=== PATIENT | male | born 1970 | race Caucasian/White ===

== ENCOUNTER 2016-12-02 21:34 | Emergency (ER) | payer OTHER ==
--- NOTE | 2016-12-02 22:12 | EDM.PDOC ---
ED HPI GENERAL MEDICAL PROBLEM - General Chief Complaint: General Stated Complaint: MEDICAL CLEARANCE Time Seen by Provider: 12/02/16 21:50 Source of Information: Reports: Patient, Police - History of Present Illness INITIAL COMMENTS - FREE TEXT/NARRATIVE: He is brought here by police. Police were called because a co worker called saying that he had a gun and was about to shoot himself. The gun was wrestled away. When police were called he was quite agitated. no pain Pain Score (Numeric/FACES): 0 - Related Data Allergies Allergy/AdvReac Type Severity Reaction Status Date / Time cimetidine [From Tagamet] Allergy Headache Verified 12/02/16 21:40 Home Meds: Home Meds Cyclobenzaprine HCl 5 mg PO TID PRN #45 tablet 08/16/16 [Rx] Gabapentin [Neurontin] 300 mg PO BID #30 capsule 08/16/16 [Rx] Sertraline HCl [Zoloft] 150 mg PO DAILY 08/16/16 [History] Vit D3/Vit E Ac/Safflower Oil [Vitamin E Oil-Vitamin D] 1 mg PO DAILY 08/16/16 [ History] methylPREDNISolone [Medrol] 4 mg PO ASDIRECTED #21 tab.ds.pk 08/16/16 [Rx] Past Medical History Cardiovascular History: Reports: None Respiratory History: Reports: None Gastrointestinal History: Reports: None Genitourinary History: Reports: None Neurological History: Reports: None Psychiatric History: Reports: None Endocrine/Metabolic History: Reports: None Hematologic History: Reports: B12 Deficiency 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 Immunologic History: Reports: None Oncologic (Cancer) History: Reports: None Dermatologic History: Reports: None - Infectious Disease History Infectious Disease History: Reports: Chicken Pox - Past Surgical History Head Surgeries/Procedures: Reports: None HEENT Surgical History: Reports: Adenoidectomy, Naso-Sinus Surgery, Oral Surgery , Tonsillectomy GI Surgical History: Reports: Other (See Below) Male Surgical History: Reports: None Musculoskeletal Surgical History: Reports: Arthroscopic Knee, Shoulder Surgery Social & Family History - Family History Family Medical History: Noncontributory - Tobacco Use Smoking Status *Q: Never Smoker Second Hand Smoke Exposure: No - Caffeine Use Caffeine Use: Reports: Coffee, Soda - Recreational Drug Use Recreational Drug Use: No ED ROS GENERAL - Review of Systems Review Of Systems: See Below Constitutional: Denies: Fever, Chills Respiratory: Denies: Shortness of Breath, Cough, Sputum ED EXAM, GENERAL - Physical Exam Exam: See Below General Appearance: Alert, No Apparent Distress, Other (he has push of speech. He seems slightly agitated and becomes very defensive and agitated when asked specific questions about his possible suicide attempt. He denies any suicidal ideation. He states that he will not cooperate with hospitalization or lab testing. ) Nose: Normal Inspection Throat/Mouth: Normal Lips Head: Atraumatic Neck: Supple. No: Thyromegaly Respiratory/Chest: No Respiratory Distress, Lungs Clear Cardiovascular: Regular Rate, Rhythm, No JVD, No Murmur GI/Abdominal: Soft, Non-Tender Course - Vital Signs Last Recorded V/S: Last Vital Signs Temp 98.7 F 12/02/16 21:41 Pulse 90 12/02/16 21:41 Resp 18 12/02/16 21:41 BP 168/100 H 12/02/16 21:41 Pulse Ox 95 12/02/16 21:41 - Orders/Labs/Meds Orders: Active Orders 24 hr Category Date Time Status EKG Documentation Completion [RC] STAT Care 12/02/16 22:28 Active Chest 1V Frontal [CR] Stat Exams 12/02/16 22:18 Ordered ACETAMINOPHEN [CHEM] Stat Lab 12/02/16 22:32 Received COMPREHENSIVE METABOLIC PN,CMP [CHEM] Stat Lab 12/02/16 22:32 Received ETHANOL BLOOD MEDICAL [CHEM] Stat Lab 12/02/16 22:32 Received T4 FREE [CHEM] Stat Lab 12/02/16 22:32 Received TSH [CHEM] Stat Lab 12/02/16 22:32 Received Labs: Laboratory Tests 12/02/16 12/02/16 12/02/16 Range/Units 22:32 22:37 22:37 WBC 7.04 (4.0-11.0) K/uL RBC 4.85 (4.50-5.90) M/uL Hgb 15.3 (13.0-17.0) g/dL Hct 43.3 (38.0-50.0) % MCV 89.3 (80.0-98.0) fL MCH 31.5 (27.0-32.0) pg MCHC 35.3 (31.0-37.0) g/dL RDW Std Deviation 45.4 (28.0-62.0) fl RDW Coeff of Ines 14 (11.0-15.0) % Plt Count 183 (150-400) K/uL MPV 10.00 (7.40-12.00) fL Neut % (Auto) 70.5 (48.0-80.0) % Lymph % (Auto) 17.0 (16.0-40.0) % Loving % (Auto) 9.5 (0.0-15.0) % Eos % (Auto) 2.7 (0.0-7.0) % Baso % (Auto) 0.3 (0.0-1.5) % Neut # (Auto) 5.0 (1.4-5.7) K/uL Lymph # (Auto) 1.2 (0.6-2.4) K/uL Loving # (Auto) 0.7 (0.0-0.8) K/uL Eos # (Auto) 0.2 (0.0-0.7) K/uL Baso # (Auto) 0.0 (0.0-0.1) K/uL Nucleated RBC % 0.0 /100WBC Nucleated RBCs # 0 K/uL Urine Color YELLOW Urine Appearance CLEAR Urine pH 7.0 (5.0-8.0) Ur Specific Sargent <= 1.005 (1.001-1.035) Urine Protein NEGATIVE (NEGATIVE) mg/dL Urine Glucose (UA) NEGATIVE (NEGATIVE) mg/dL Urine Ketones NEGATIVE (NEGATIVE) mg/dL Urine Occult Blood TRACE-INTACT (NEGATIVE) Urine Nitrite NEGATIVE (NEGATIVE) Urine Bilirubin NEGATIVE (NEGATIVE) Urine Urobilinogen 0.2 (<2.0) EU/dL Ur Leukocyte Esterase NEGATIVE (NEGATIVE) Urine RBC 0-2 (0-2/HPF) Urine WBC NONE SEEN (0-5/HPF) Ur Epithelial Cells RARE (NONE-FEW) Urine Bacteria RARE (NEGATIVE) Urine Opiates Screen NEGATIVE (NEGATIVE) Ur Oxycodone Screen NEGATIVE (NEGATIVE) Urine Methadone Screen NEGATIVE (NEGATIVE) Ur Barbiturates Screen NEGATIVE (NEGATIVE) Ur Phencyclidine Scrn NEGATIVE (NEGATIVE) Ur Amphetamine Screen NEGATIVE (NEGATIVE) U Methamphetamines Scrn NEGATIVE (NEGATIVE) U Benzodiazepines Scrn NEGATIVE (NEGATIVE) U Cocaine Metab Screen NEGATIVE (NEGATIVE) U Marijuana (THC) Screen NEGATIVE (NEGATIVE) - Re-Assessments/Exams Free Text/Narrative Re-Assessment/Exam: 12/02/16 22:[address] Rodriguez psychiatrist [facility] who agreed to accept through the emergency dept. I also spoke with Dr Mueller, ER physician [facility] who agrees to accept. Departure - Departure Time of Disposition: 22:55 Disposition: DC/Tfer to [facility] Condition: fair Clinical Impression: Suicide risk - Discharge Information Forms: ED Department Discharge Additional Instructions: patient to be transferred by EMS to [facility] - My Orders Last 24 Hours: My Active Orders 12/02/16 22:18 Chest 1V Frontal [CR] Stat 12/02/16 22:28 EKG Documentation Completion [RC] STAT 12/02/16 22:32 ACETAMINOPHEN [CHEM] Stat COMPREHENSIVE METABOLIC PN,CMP [CHEM] Stat ETHANOL BLOOD MEDICAL [CHEM] Stat T4 FREE [CHEM] Stat TSH [CHEM] Stat - Assessment/Plan Last 24 Hours: My Active Orders 12/02/16 22:18 Chest 1V Frontal [CR] Stat 12/02/16 22:28 EKG Documentation Completion [RC] STAT 12/02/16 22:32 ACETAMINOPHEN [CHEM] Stat COMPREHENSIVE METABOLIC PN,CMP [CHEM] Stat ETHANOL BLOOD MEDICAL [CHEM] Stat T4 FREE [CHEM] Stat TSH [CHEM] Stat
[2016-12-02 22:55] LABS: CHLORIDE,CL 109 mmol/L (98-110); SODIUM,NA 144 mmol/L (136-146)
[2016-12-02 22:59] LABS: ACETAMINOPHEN < 3.0 ug/mL
[2016-12-03] MEDS ORDERED: LORazepam 2 MG/ML MDV IM ONE (00:01)
[2016-12-03] MEDS ORDERED: Haloperidol Lactate 5 MG/ML SDV IM ONE (00:05)
[2016-12-03] MEDS ORDERED: Haloperidol Lactate 5 MG/ML SDV ONE (00:05)
[2016-12-03 00:19] VITALS: BP 140/85
--- NOTE | 2016-12-03 10:22 | CR ---
EXAM DATE: 12/02/16 PATIENT'S AGE: 46 Patient: NATALIO NGUYEN Facility: [place], [place] Site . Site : [id number] Study: XRay Chest [id number]/16/2017 11:06:32 PM Ordering Physician: Doctor Van Final Report: INDICATION: screening, suicide risk TECHNIQUE: Chest radiograph 1 view COMPARISON: None FINDINGS: Cardiovascular and mediastinum: The cardiac silhouette is normal in appearance and size. Mediastinum is within normal limits. Lungs and pleural space: Both lungs are unremarkable in appearance. No sign of pleural effusion. No pneumothorax is seen. Bones and soft tissues: No significant findings. IMPRESSION: 1. No acute cardiopulmonary disease seen. Dictated by: Tomasz Rodriguez MD @ 12/02/2016 23:06:59 (Electronic Signature) Report Signed by Proxy. [facility]
== END 2016-12-03 00:15 ==
LOC: MW.ED 21:34
DX: R45.851 Suicidal ideations (principal); Z88.8 Allergy status to other drugs, medicaments and biological substances; Z79.899 Other long term (current) drug therapy; Z98.890 Other specified postprocedural states
CPT/HCPCS: 36415; 71010; 80053; 80305; 81001; 84439; 84443; 85025; 93005; 96372; 99285; G0480; J1630; J2060; 99283